=== PATIENT | female | born 1980 | race Caucasian/White ===

== ENCOUNTER → 2023-09-17 14:06 | Outpatient (REF) | payer OTHER, SELFPAY | LOC: WDC 14:06 | PROVIDERS: ATTENDING PHYSICIAN Family Medicine | DX: Z12.31 Encounter for screening mammogram for malignant neoplasm of breast (principal) | CPT/HCPCS: 77063; 77067 ==

== ENCOUNTER → 2023-09-24 08:37 | Outpatient (REF) | payer OTHER, SELFPAY | LOC: WDC 08:37 | PROVIDERS: ATTENDING PHYSICIAN Family Medicine | DX: R92.8 Other abnormal and inconclusive findings on diagnostic imaging of breast (principal) | CPT/HCPCS: 76642 ==

== ENCOUNTER → 2023-09-29 08:24 | Outpatient (REF) | payer OTHER, SELFPAY ==
--- NOTE | 2023-09-29 13:24 | OID.BR.INTR ---
OID Breast Navigator - Initial
- -
Date of Contact: 09/29/23
Met with patient. Patient given written information on navigator services and support services available at [facility]. Will follow up as needed per protocol.
== END ==
LOC: WDC 08:24
PROVIDERS: ATTENDING PHYSICIAN Family Medicine
DX: N63.11 Unspecified lump in the right breast, upper outer quadrant (principal)
CPT/HCPCS: 88305; 19083; 77065; A4648

== ENCOUNTER → 2024-09-20 06:58 | Outpatient (REF) | payer OTHER, SELFPAY | LOC: WDC 06:58 | PROVIDERS: ATTENDING PHYSICIAN Nurse Practitioner Adult Health; FAMILY PHYSICIAN Family Medicine | DX: Z12.31 Encounter for screening mammogram for malignant neoplasm of breast (principal) | CPT/HCPCS: 77063; 77067 ==

== ENCOUNTER 2024-11-08 23:11 | Emergency (ER) | payer OTHER, SELFPAY ==
[2024-11-08 23:16] VITALS: BP 142/94
--- NOTE | 2024-11-09 03:02 | ED.SKININJ ---
HPI-Injury
General
Chief Complaint: Bite
Source: patient
Exam Limitations: none
Time Seen by Provider: 11/09/24 02:53
Nursing documentation reviewed up to this point in time: agreed with
History of Present Illness-Injury
Initial Injury comments:
Note:
CHIEF COMPLAINT(S)
Insect bite to left upper arm with spreading erythema, itching, and discomfort.
HISTORY OF PRESENT ILLNESS
The patient is a 43-year-old female who presents with a complaint of an insect bite on her left upper arm. She reports that the bite occurred yesterday at approximately 1:00 PM and was initially very painful. Since the event, the area has continued
to spread and has developed significant erythema and itching, described by the patient as 'itching like hell.' The patient expresses fatigue and notes intermittent tingling extending down to her fingers. She has taken diphenhydramine (Benadryl) and
acetaminophen (Tylenol) earlier for symptom relief. The patient denies any known allergies, apart from a reaction to [place] trees.
SOCIAL DETERMINANTS AFFECTING HEALTH
The patient mentioned that her is terminally ill, which may contribute to her stress levels.
SOCIAL HISTORY
The patient admits to smoking but did not specify the frequency or duration. She also reports occasional alcohol consumption.
REVIEW OF SYSTEMS
- General: Fatigue
- Skin: Spreading erythema at the site of an insect bite
- Neurological: Tingling sensation in arm extending to fingers
PHYSICAL EXAM
- General: Afebrile, no acute distress
- Pulmonary: No respiratory distress
- Ear, Nose, and Throat: No oral or tongue edema
- Integumentary: Left upper arm with erythema at the site of the insect bite
- Vascular: Normal pulses in all extremities, soft compartments
PROBLEM LIST
- Acute: Insect bite with localized reaction
-
PLAN
1. Initiate oral prednisone for inflammation control.
2. Prescribe cephalexin (Keflex) to prevent or treat possible secondary bacterial infection.
3. Advise the use of non-sedating antihistamines like loratadine (Claritin) during the day for itching and diphenhydramine at night as needed.
4. Educate on icing and elevating the affected limb above heart level when possible.
5. Arrange for nurse administration of medication and immediate treatment initiation.
DIFFERENTIAL DIAGNOSIS
The Differential Diagnosis includes, in no particular order and is not limited to:
1. Insect bite with allergic reaction
2. Cellulitis
3. Contact dermatitis
4. Hives (urticaria)
5. Space-occupying lesion or abscess
6. Lymphangitis
7. Herpes zoster (localized to dermatome)
8. Thrombophlebitis
9. Deep vein thrombosis (unlikely due to location)
10. Allergic reaction to external allergen or irritant
Disposition:
SUMMARY OF ENCOUNTER
The patient, a 43-year-old female, presented to the emergency department with an insect bite on her left upper arm. The insect bite was causing spreading erythema, itching, and discomfort. She reported significant erythema, itching, and a tingling
sensation that extended down to her fingers, and expressed fatigue. The patient had taken [id number] medications, including diphenhydramine and acetaminophen, prior to her visit. Due to the appearance of the insect bite and symptoms, oral
prednisone was initiated for inflammation control, and cephalexin was prescribed to address any potential secondary bacterial infection.
DISPOSITION
Discharge home in good condition.
ASSESSMENT
The patient presented with a localized insect bite reaction, likely with elements of an allergic reaction, and potential for secondary bacterial infection.
PLAN
The plan included starting oral prednisone to manage inflammation and prescribing cephalexin to prevent or treat secondary bacterial infection. The patient was advised to follow up with her primary care physician in 3 to 5 days and to return to the
ED if symptoms worsened or new symptoms developed.
PATIENT EDUCATION AND COUNSELING
The patient was educated on the use of icing and elevating the affected limb above heart level when possible to reduce swelling and discomfort. She was also instructed to monitor for signs of worsening infection or allergic reaction, and to seek
medical attention if these occurred.
FOLLOW-UP INSTRUCTIONS
The patient was instructed to follow up with her primary care physician within 3 to 5 days and return to the emergency department if symptoms worsened.
MEDICATION RECONCILIATION
1. Prednisone: Prescribed for inflammation control due to insect bite reaction.
2. Cephalexin: Prescribed to prevent or treat potential secondary infection.
MEDICAL DECISION MAKING
-Complexity of Data Reviewed: Differential diagnosis included insect bite with allergic reaction, cellulitis, contact dermatitis, hives (urticaria), among others.
-Data:
Category 1
No specific labs were ordered or reviewed.
Category 2
Not applicable.
Category 3
Not applicable.
-Risk: Prescription medication was prescribed: prednisone and cephalexin to manage the insect bite reaction and prevent infection.
Care significantly affected by Social Determinants of Health: Patients stress possibly influenced by terminally ill .
DIAGNOSIS
Insect bite with localized allergic reaction and potential secondary bacterial infection (ICD-10 Code W57.XXXA for insect bite/sting, initial encounter).
Phy Exam
Physical Exam
Physical Exam:
.
Course
Orders/Labs/Results
Orders:
Orders
11/09/24 03:02
Cephalexin Monohydrate [Keflex] 500 mg PO NOW STA
Prednisone [Deltasone] 50 mg PO NOW STA
Vital Signs
Initial and Last Documented VS:
Initial Vital Signs
Temp Pulse Resp BP Pulse Ox
98.1 F 90 18 142/94 100
11/08/24 23:16 11/08/24 23:16 11/08/24 23:16 11/08/24 23:16 11/08/24 23:16
Last Documented Vital Signs
Temp Pulse Resp BP Pulse Ox
98.1 F 90 18 142/94 100
11/08/24 23:16 11/08/24 23:16 11/08/24 23:16 11/08/24 23:16 11/09/24 03:02
*Pulse Oximetry
SaO2: 100
Oxygen Mode of Delivery: Room air
Patient hypoxic: no
*Critical Care Note
Total Time (30-74mins, 75-104mins- exclusive of procedures): Not Applicable
ED Attending Note
-
Portions of this chart may have been created with voice recognition software.� Occasional wrong word or��sound alike� substitutions may have occurred due to the inherent limitations of voice recognition software.
Discharge Plan
Departure
Patient Disposition: Home (Routine Discharge)
Date of Disposition: 11/09/24
Time of Disposition: 03:03
Patient with high blood pressure during this ER visit?: Yes
Condition: Good
Discharge Problem:
Insect bite
Instructions: Insect Bites and Stings (DC), BLOOD PRESSURE
Prescriptions:
New
cephalexin 500 mg capsule
500 mg PO TID 7 Days Qty: 21 0RF
prednisone 50 mg tablet
50 mg PO DAILY Qty: 5 0RF
No Action
amoxicillin 500 mg capsule
500 mg PO BID 10 Days Qty: 20 0RF
Referrals:
Gorge Wood DO [Family Provider, Family Practice] - Call in 1-3 days for appt
Interventions
Interventions:
*Risk Screen - Suicide Last Done: 11/08/24 23:16
*Neglect/Abuse Screening Last Done: 11/08/24 23:16
Discharge Date and Time
Print Language: GREEN[place]
[2024-11-09] MEDS: KEFLEX 500 MG PO (03:15)
[2024-11-09] MEDS: DELTASONE 50 MG PO (03:15)
[2024-11-09 03:19] VITALS: BP 125/83
== END 2024-11-09 03:21 | disposition home or self-care (01) ==
LOC: EMR 23:11
PROVIDERS: EMERGENCY PHYSICIAN Emergency Medicine; FAMILY PHYSICIAN Family Medicine
DX: S40.862A Insect bite (nonvenomous) of left upper arm, initial encounter (principal); L29.9 Pruritus, unspecified; W57.XXXA Bitten or stung by nonvenomous insect and other nonvenomous arthropods, initial encounter; F17.200 Nicotine dependence, unspecified, uncomplicated
CPT/HCPCS: 99283